=== PATIENT | male | born 1935 | race Caucasian/White ===

== ENCOUNTER 2018-11-02 12:34 | Inpatient (IN) ==
[2018-11-02 14:20] LABS: Basophils # 0.1 10*3/uL (0.0-0.2); Basophils % 0.2 % (0.0-0.8); Eosinophils # 0.1 10*3/uL (0.0-0.87); Eosinophils % 0.5 % (0.00-10.9); Hematocrit 42.2 VOL% (42.0-52.0); Hemoglobin 13.9 GM/DL (14.0-18.0); Immature Granulocytes % 3.3 %; Immature Granulocytes Absolute 0.75 #; Lymphocytes # 7.5 10*3/uL (1.4-4.0); Mean Corpuscular HGB Conc 32.9 GM/DL (32-36); Mean Corpuscular Hemoglobin 30 PG (27-34); Mean Corpuscular Volume 91.7 FL (87-102); Mean Platelet Volume 9.4 FL (9.6-12.0); Monocytes % 4.6 % (1.7-12.7); Neutrophils # 13.3 10*3/uL (1.4-7.4); Neutrophils % 58.4 % (38.7-73.9); Platelet Count 297 T/CUMM (130-400); Red Cell Distribution Width 13.7 % (9.3-17.3); White Blood Count 22.7 T/CUMM (4-12)
[2018-11-02 14:32] LABS: Albumin 3.2 G/DL (3.4-5.0); Bilirubin,Total 0.9 MG/DL (0.2-1.0); Calcium 7.6 MG/DL (8.5-10.1); Osmolality,Calculated 280.5 MOS/KG (273-304); Potassium 4.4 MMOL/L (3.5-5.1); Total Protein 6.2 G/DL (6.4-8.3)
[2018-11-02 14:41] LABS: Lymphocytes 20 % (20-55); Platelet Estimate Normal; Segmented Neutrophils 76 % (50-85); Total Cells Counted 100
[2018-11-02 14:56] LABS: Apearance,Urine CLEAR (Clear); Bilirubin,Urine Negative (Negative); Blood, Urine Negative (Negative); Glucose,Urine (UA) Negative (Negative); Hyaline Casts,Urine 4 /LPF (0-3); Ketones,Urine Negative (Negative); Mucus,Urine Occasional /LPF (Occasional); Nitrite,Urine Negative (Negative); Protein,Urine Negative; RBC,Urine <1 /HPF (0-4); Squamous Epithelial Cell,Urine Occasional /HPF (0-10); Urine Color Yellow (Yellow); Urine Specific Gravity 1.011 (1.001-1.035); Urine Urobilinogen < 2.0 EU/DL (0.2-1.0); WBC,Urine <1 /HPF (0-6)
[2018-11-02] MEDS ORDERED: SODIUM CHLORIDE 0.9% 500 ML IV STA (15:50)
[2018-11-02] MEDS ORDERED: ONDANSETRON 4 MG/2 ML VIAL IV PRN (16:21)
[2018-11-02] MEDS ORDERED: ALBUTEROL 2.5 MG/3 ML NEB RESP TX PRN (19:00)
[2018-11-02] MEDS: SODIUM CHLORIDE 0.9% 1,000 ML IV SCH (19:28)
[2018-11-02] MEDS: ALBUTEROL/IPRATROPIUM 3 ML NEB RESP TX SCH (20:06)
[2018-11-02] MEDS: ACETAMINOPHEN 500 MG TABLET PO SCH (22:20)
[2018-11-02] MEDS: TAMSULOSIN 0.4 MG CAPSULE PO SCH (22:21)
[2018-11-02] MEDS: POTASSIUM CHLORIDE 20 MEQ TABLET PO SCH (22:21)
[2018-11-02] MEDS: RIVAROXABAN 20 MG TABLET PO SCH (22:21)
[2018-11-02] MEDS: FINASTERIDE 5 MG TABLET PO SCH (22:21)
[2018-11-03] MEDS: LEVOTHYROXINE 75 MCG TABLET PO SCH (06:40)
[2018-11-03 06:52] LABS: Basophils % 0.2 % (0.0-0.8); Eosinophils # 0.2 10*3/uL (0.0-0.87); Eosinophils % 1.2 % (0.00-10.9); Hematocrit 38.2 VOL% (42.0-52.0); Hemoglobin 12.6 GM/DL (14.0-18.0); Immature Granulocytes % 2.9 %; Immature Granulocytes Absolute 0.54 #; Lymphocytes # 7.4 10*3/uL (1.4-4.0); Lymphocytes % 39.9 % (21.2-54.2); Mean Corpuscular Hemoglobin 30 PG (27-34); Mean Corpuscular Volume 91.6 FL (87-102); Mean Platelet Volume 9.4 FL (9.6-12.0); Monocytes # 0.8 10*3/uL (0.11-0.8); Monocytes % 4.2 % (1.7-12.7); Neutrophils # 9.7 10*3/uL (1.4-7.4); Neutrophils % 51.6 % (38.7-73.9); Platelet Count 206 T/CUMM (130-400); Red Blood Count 4.17 MC/CUMM (3.8-5.5); Red Cell Distribution Width 13.7 % (9.3-17.3); White Blood Count 18.7 T/CUMM (4-12)
[2018-11-03] MEDS: ALBUTEROL/IPRATROPIUM 3 ML NEB RESP TX SCH ×4 (07:09→19:29)
[2018-11-03 07:18] LABS: Atypical Lymphocytes Few; Lymphocytes 30 % (20-55); Segmented Neutrophils 64 % (50-85); Smudge Cells Few; Total Cells Counted 100
[2018-11-03 07:19] LABS: Hypochromasia 1+; Microcytosis Slight; Platelet Estimate Normal
[2018-11-03 07:29] LABS: Albumin 2.9 G/DL (3.4-5.0); Bilirubin,Total 0.4 MG/DL (0.2-1.0); Calcium 7.7 MG/DL (8.5-10.1); Potassium 4.2 MMOL/L (3.5-5.1); Total Protein 5.7 G/DL (6.4-8.3)
[2018-11-03] MEDS ORDERED: Tadalafil [Cialis] 20 MG PO SCH (09:00)
[2018-11-03] MEDS ORDERED: VITAMIN E 100 UNIT PO SCH (09:00)
[2018-11-03] MEDS ORDERED: DILTIAZEM CD 120 MG CAPSULE PO SCH (09:00)
[2018-11-03] MEDS: PANTOPRAZOLE 40 MG TABLET PO SCH (09:27)
[2018-11-03] MEDS: POTASSIUM CHLORIDE 20 MEQ TABLET PO SCH ×2 (09:27→21:21)
[2018-11-03] MEDS: MONTELUKAST 10 MG TABLET PO SCH (09:28)
[2018-11-03] MEDS: ACETAMINOPHEN 500 MG TABLET PO SCH ×2 (09:28→21:21)
[2018-11-03] MEDS: FUROSEMIDE 40 MG TABLET PO SCH ×2 (09:29→21:22)
[2018-11-03] MEDS: MULTIVITAMIN (CENTRUM) TABLET PO SCH (09:29)
[2018-11-03] MEDS: CARVEDILOL 6.25 MG TABLET PO SCH (16:34)
[2018-11-03] MEDS: SODIUM CHLORIDE 0.9% 1,000 ML IV SCH (16:40)
[2018-11-03] MEDS ORDERED: METOPROLOL TARTRATE 50 MG TABLET PO SCH (21:00)
[2018-11-03] MEDS: RIVAROXABAN 20 MG TABLET PO SCH (21:21)
[2018-11-03] MEDS: FINASTERIDE 5 MG TABLET PO SCH (21:22)
[2018-11-03] MEDS: TAMSULOSIN 0.4 MG CAPSULE PO SCH (21:22)
[2018-11-04] MEDS: LEVOTHYROXINE 75 MCG TABLET PO SCH (06:57)
[2018-11-04] MEDS: ALBUTEROL/IPRATROPIUM 3 ML NEB RESP TX SCH ×2 (07:21→10:45)
[2018-11-04] MEDS: ACETAMINOPHEN 500 MG TABLET PO SCH (08:52)
[2018-11-04] MEDS: CARVEDILOL 6.25 MG TABLET PO SCH (08:53)
[2018-11-04] MEDS: MONTELUKAST 10 MG TABLET PO SCH (08:53)
[2018-11-04] MEDS: MULTIVITAMIN (CENTRUM) TABLET PO SCH (08:53)
[2018-11-04] MEDS: PANTOPRAZOLE 40 MG TABLET PO SCH (08:53)
[2018-11-04] MEDS: FUROSEMIDE 40 MG TABLET PO SCH (08:53)
[2018-11-04] MEDS: POTASSIUM CHLORIDE 20 MEQ TABLET PO SCH (08:53)
[2018-11-04 11:34] VITALS: BP 101/67
== END 2018-11-04 13:00 | disposition home health service (06) | DRG 308 ==
LOC: N.ED 12:34 → N.EDINP 16:21 → N.TELES 16:51
PROVIDERS: ADMIT Emergency Medicine; ATTEND Emergency Medicine

== ENCOUNTER 2019-01-07 09:26 | Inpatient (IN) ==
[2019-01-07] MEDS ORDERED: methylPREDNISolone SOD SUC 40 MG/1 ML VIAL IV STA (09:49)
[2019-01-07] MEDS ORDERED: ALBUTEROL 2.5 MG/3 ML NEB RESP TX STA (09:49)
[2019-01-07] MEDS ORDERED: cefTRIAXone 1,000 MG in SODIUM CHLORIDE 0.9% 100 ML IV STA (09:50)
[2019-01-07 10:10] LABS: Basophils % 0.2 % (0.0-0.8); Eosinophils % 0.2 % (0.00-10.9); Hematocrit 32.4 VOL% (42.0-52.0); Hemoglobin 10.1 GM/DL (14.0-18.0); Immature Granulocytes % 0.8 %; Immature Granulocytes Absolute 0.11 #; Lymphocytes # 1.6 10*3/uL (1.4-4.0); Lymphocytes % 12.2 % (21.2-54.2); Mean Corpuscular HGB Conc 31.2 GM/DL (32-36); Mean Corpuscular Hemoglobin 29 PG (27-34); Mean Corpuscular Volume 94.2 FL (87-102); Mean Platelet Volume 10.2 FL (9.6-12.0); Monocytes # 1.3 10*3/uL (0.11-0.8); Neutrophils # 10.1 10*3/uL (1.4-7.4); Neutrophils % 76.6 % (38.7-73.9); Platelet Count 214 T/CUMM (130-400); Red Blood Count 3.44 MC/CUMM (3.8-5.5); Red Cell Distribution Width 14.4 % (9.3-17.3); White Blood Count 13.2 T/CUMM (4-12)
[2019-01-07 10:27] LABS: Calcium 8.6 MG/DL (8.5-10.1); Osmolality,Calculated 272.2 MOS/KG (273-304); Potassium 4.3 MMOL/L (3.5-5.1)
[2019-01-07] MEDS ORDERED: ACETAMINOPHEN 325 MG TABLET PO PRN (13:12)
[2019-01-07] MEDS ORDERED: ONDANSETRON 4 MG/2 ML VIAL IV PRN (13:12)
[2019-01-07] MEDS ORDERED: DOCUSATE SODIUM 100 MG CAPSULE PO PRN (13:12)
[2019-01-07] MEDS ORDERED: ALBUTEROL/IPRATROPIUM 3 ML NEB RESP TX PRN (13:18)
[2019-01-07] MEDS ORDERED: AZITHROMYCIN INJ 500 MG in SODIUM CHLORIDE 0.9% 250 ML IV STA (13:26)
[2019-01-07] MEDS ORDERED: ALBUTEROL 2.5 MG/3 ML NEB RESP TX PRN (13:33)
[2019-01-07] MEDS ORDERED: SODIUM CHLORIDE 0.9% 1,000 ML IV SCH (14:00)
[2019-01-07 14:29] LABS: Thyroid Stimulating Hormone 1.49 uIU/ml (0.358-3.74)
[2019-01-07 16:53] LABS: Apearance,Urine CLEAR (Clear); Bilirubin,Urine Negative (Negative); Blood, Urine Negative (Negative); Glucose,Urine (UA) Negative (Negative); Hyaline Casts,Urine 1 /LPF (0-3); Ketones,Urine Negative (Negative); Mucus,Urine Occasional /LPF (Occasional); Nitrite,Urine Negative (Negative); Protein,Urine Negative; RBC,Urine 1 /HPF (0-4); Urine Color Yellow (Yellow); Urine Specific Gravity 1.008 (1.001-1.035); Urine Urobilinogen < 2.0 EU/DL (0.2-1.0); WBC,Urine <1 /HPF (0-6)
[2019-01-07] MEDS ORDERED: CARVEDILOL 6.25 MG TABLET PO SCH (17:00)
[2019-01-07] MEDS: RIVAROXABAN 15 MG TABLET PO SCH (17:39)
[2019-01-07] MEDS: METOPROLOL SUCCINATE XL 50 MG TABLET PO SCH (20:48)
[2019-01-07] MEDS: POTASSIUM CHLORIDE 20 MEQ TABLET PO SCH (20:49)
[2019-01-07] MEDS: FINASTERIDE 5 MG TABLET PO SCH (20:50)
[2019-01-07] MEDS ORDERED: TAMSULOSIN 0.4 MG CAPSULE PO SCH (21:00)
[2019-01-08 03:40] LABS: Basophils % 0.1 % (0.0-0.8); Hematocrit 30.9 VOL% (42.0-52.0); Hemoglobin 9.7 GM/DL (14.0-18.0); Immature Granulocytes % 0.9 %; Immature Granulocytes Absolute 0.11 #; Lymphocytes # 2.7 10*3/uL (1.4-4.0); Lymphocytes % 21.3 % (21.2-54.2); Mean Corpuscular HGB Conc 31.4 GM/DL (32-36); Mean Corpuscular Hemoglobin 30 PG (27-34); Mean Corpuscular Volume 93.9 FL (87-102); Mean Platelet Volume 10.4 FL (9.6-12.0); Monocytes # 0.9 10*3/uL (0.11-0.8); Monocytes % 6.9 % (1.7-12.7); Neutrophils % 70.8 % (38.7-73.9); Platelet Count 214 T/CUMM (130-400); Red Blood Count 3.29 MC/CUMM (3.8-5.5); Red Cell Distribution Width 14.2 % (9.3-17.3); White Blood Count 12.7 T/CUMM (4-12)
[2019-01-08 03:59] LABS: Bilirubin,Total 0.6 MG/DL (0.2-1.0); Calcium 8.4 MG/DL (8.5-10.1); Osmolality,Calculated 277.1 MOS/KG (273-304)
[2019-01-08] MEDS: LEVOTHYROXINE 75 MCG TABLET PO SCH (06:46)
[2019-01-08] MEDS: VITAMIN E 200 UNIT CAPSULE PO SCH (08:44)
[2019-01-08] MEDS: MONTELUKAST 10 MG TABLET PO SCH (08:44)
[2019-01-08] MEDS: PANTOPRAZOLE 40 MG TABLET PO SCH (08:44)
[2019-01-08] MEDS: CHOLECALCIFEROL 5,000 UNIT TABLET PO SCH (08:44)
[2019-01-08] MEDS: MULTIVITAMIN (CENTRUM) TABLET PO SCH (08:45)
[2019-01-08] MEDS: ZINC GLUCONATE 50 MG TABLET PO SCH (08:45)
[2019-01-08] MEDS: cefTRIAXone 1,000 MG in SYRINGE 1 EACH IV SCH (08:45)
[2019-01-08] MEDS: METOPROLOL SUCCINATE XL 50 MG TABLET PO SCH ×2 (08:45→20:38)
[2019-01-08] MEDS: FUROSEMIDE 20 MG TABLET PO SCH (08:45)
[2019-01-08] MEDS ORDERED: FUROSEMIDE 20 MG TABLET PO SCH (09:00)
[2019-01-08] MEDS ORDERED: AZITHROMYCIN INJ 500 MG in SODIUM CHLORIDE 0.9% 250 ML IV SCH (09:00)
[2019-01-08] MEDS: ALBUTEROL/IPRATROPIUM 3 ML NEB RESP TX SCH ×4 (11:15→23:25)
[2019-01-08] MEDS ORDERED: AZITHROMYCIN INJ 500 MG in SODIUM CHLORIDE 0.9% 250 ML IV ONE (13:00)
[2019-01-08] MEDS: RIVAROXABAN 15 MG TABLET PO SCH (17:04)
[2019-01-08] MEDS: POTASSIUM CHLORIDE 20 MEQ TABLET PO SCH (20:38)
[2019-01-08] MEDS: FINASTERIDE 5 MG TABLET PO SCH (20:38)
[2019-01-09] MEDS: ALBUTEROL/IPRATROPIUM 3 ML NEB RESP TX SCH ×6 (03:14→23:06)
[2019-01-09 05:27] LABS: Basophils # 0.1 10*3/uL (0.0-0.2); Basophils % 0.3 % (0.0-0.8); Eosinophils # 0.1 10*3/uL (0.0-0.87); Eosinophils % 0.7 % (0.00-10.9); Hematocrit 34.9 VOL% (42.0-52.0); Hemoglobin 10.8 GM/DL (14.0-18.0); Immature Granulocytes % 1.1 %; Immature Granulocytes Absolute 0.18 #; Lymphocytes # 3.6 10*3/uL (1.4-4.0); Lymphocytes % 22.6 % (21.2-54.2); Mean Corpuscular HGB Conc 30.9 GM/DL (32-36); Mean Corpuscular Hemoglobin 29 PG (27-34); Mean Corpuscular Volume 94.6 FL (87-102); Mean Platelet Volume 9.9 FL (9.6-12.0); Monocytes # 1.1 10*3/uL (0.11-0.8); Neutrophils # 10.8 10*3/uL (1.4-7.4); Neutrophils % 68.3 % (38.7-73.9); Platelet Count 258 T/CUMM (130-400); Red Blood Count 3.69 MC/CUMM (3.8-5.5); Red Cell Distribution Width 14.4 % (9.3-17.3); White Blood Count 15.9 T/CUMM (4-12)
[2019-01-09 05:57] LABS: Albumin 3.3 G/DL (3.4-5.0); Bilirubin,Total 0.7 MG/DL (0.2-1.0); Calcium 8.9 MG/DL (8.5-10.1); Osmolality,Calculated 280.5 MOS/KG (273-304); Potassium 4.4 MMOL/L (3.5-5.1); Total Protein 7.2 G/DL (6.4-8.3)
[2019-01-09] MEDS: LEVOTHYROXINE 75 MCG TABLET PO SCH (06:19)
[2019-01-09] MEDS ORDERED: BENZONATATE 100 MG CAPSULE PO PRN (08:54)
[2019-01-09] MEDS ORDERED: guaiFENesin 200 MG/10 ML UDCUP PO PRN (08:55)
[2019-01-09] MEDS ORDERED: FUROSEMIDE 20 MG TABLET PO SCH (09:00)
[2019-01-09] MEDS: CHOLECALCIFEROL 5,000 UNIT TABLET PO SCH (10:42)
[2019-01-09] MEDS: FUROSEMIDE 20 MG TABLET PO SCH (10:42)
[2019-01-09] MEDS: MONTELUKAST 10 MG TABLET PO SCH (10:42)
[2019-01-09] MEDS: METOPROLOL SUCCINATE XL 25 MG TABLET PO SCH ×2 (10:42→20:16)
[2019-01-09] MEDS: MULTIVITAMIN (CENTRUM) TABLET PO SCH (10:42)
[2019-01-09] MEDS: AZITHROMYCIN 250 MG TABLET PO SCH (10:42)
[2019-01-09] MEDS: DILTIAZEM CD 120 MG CAPSULE PO SCH (10:43)
[2019-01-09] MEDS: ZINC GLUCONATE 50 MG TABLET PO SCH (10:43)
[2019-01-09] MEDS: PANTOPRAZOLE 40 MG TABLET PO SCH (10:43)
[2019-01-09] MEDS: VITAMIN E 200 UNIT CAPSULE PO SCH (10:43)
[2019-01-09] MEDS: cefTRIAXone 1,000 MG in SYRINGE 1 EACH IV SCH (10:47)
[2019-01-09] MEDS: METOPROLOL SUCCINATE XL 50 MG TABLET PO SCH (10:48)
[2019-01-09] MEDS: RIVAROXABAN 15 MG TABLET PO SCH (16:20)
[2019-01-09] MEDS: FINASTERIDE 5 MG TABLET PO SCH (20:16)
[2019-01-09] MEDS: POTASSIUM CHLORIDE 20 MEQ TABLET PO SCH (20:16)
[2019-01-10] MEDS: ALBUTEROL/IPRATROPIUM 3 ML NEB RESP TX SCH ×6 (03:22→23:15)
[2019-01-10 05:26] LABS: Basophils % 0.3 % (0.0-0.8); Eosinophils # 0.2 10*3/uL (0.0-0.87); Eosinophils % 1.8 % (0.00-10.9); Hematocrit 32.2 VOL% (42.0-52.0); Hemoglobin 10.2 GM/DL (14.0-18.0); Immature Granulocytes % 1.9 %; Lymphocytes # 3.6 10*3/uL (1.4-4.0); Lymphocytes % 34.3 % (21.2-54.2); Mean Corpuscular HGB Conc 31.7 GM/DL (32-36); Mean Corpuscular Hemoglobin 29 PG (27-34); Mean Corpuscular Volume 92.5 FL (87-102); Mean Platelet Volume 9.9 FL (9.6-12.0); Monocytes % 9.2 % (1.7-12.7); Neutrophils # 5.4 10*3/uL (1.4-7.4); Neutrophils % 52.5 % (38.7-73.9); Platelet Count 238 T/CUMM (130-400); Red Blood Count 3.48 MC/CUMM (3.8-5.5); Red Cell Distribution Width 14.4 % (9.3-17.3); White Blood Count 10.4 T/CUMM (4-12)
[2019-01-10 05:29] LABS: Albumin 2.8 G/DL (3.4-5.0); Bilirubin,Total 0.4 MG/DL (0.2-1.0); Calcium 8.6 MG/DL (8.5-10.1); Osmolality,Calculated 281.3 MOS/KG (273-304); Total Protein 6.4 G/DL (6.4-8.3)
[2019-01-10 05:49] LABS: Eosinophils 1 % (0-10); Hypochromasia 1+; Lymphocytes 29 % (20-55); Myelocytes 1 %; Platelet Estimate Adequate; Segmented Neutrophils 59 % (50-85); Total Cells Counted 100
[2019-01-10] MEDS: LEVOTHYROXINE 75 MCG TABLET PO SCH (06:14)
[2019-01-10] MEDS: FUROSEMIDE 20 MG TABLET PO SCH (09:01)
[2019-01-10] MEDS: MULTIVITAMIN (CENTRUM) TABLET PO SCH (09:02)
[2019-01-10] MEDS: AZITHROMYCIN 250 MG TABLET PO SCH (09:02)
[2019-01-10] MEDS: MONTELUKAST 10 MG TABLET PO SCH (09:03)
[2019-01-10] MEDS: CHOLECALCIFEROL 5,000 UNIT TABLET PO SCH (09:04)
[2019-01-10] MEDS: PANTOPRAZOLE 40 MG TABLET PO SCH (09:04)
[2019-01-10] MEDS: METOPROLOL SUCCINATE XL 25 MG TABLET PO SCH ×2 (09:04→20:42)
[2019-01-10] MEDS: VITAMIN E 200 UNIT CAPSULE PO SCH (09:04)
[2019-01-10] MEDS: DILTIAZEM CD 120 MG CAPSULE PO SCH (09:04)
[2019-01-10] MEDS: cefTRIAXone 1,000 MG in SYRINGE 1 EACH IV SCH (09:05)
[2019-01-10] MEDS: ZINC GLUCONATE 50 MG TABLET PO SCH (09:05)
[2019-01-10 13:06] LABS: Mycoplasma pneumoniae Ab, IgG Positive (Negative); Mycoplasma pneumoniae Ab, IgM Equivocal (Negative)
[2019-01-10] MEDS: methylPREDNISolone SOD SUC 40 MG/1 ML VIAL IV SCH ×2 (14:27→23:18)
[2019-01-10] MEDS: RIVAROXABAN 15 MG TABLET PO SCH (16:43)
[2019-01-10] MEDS: FINASTERIDE 5 MG TABLET PO SCH (20:42)
[2019-01-10] MEDS: POTASSIUM CHLORIDE 20 MEQ TABLET PO SCH (20:42)
[2019-01-11] MEDS: ALBUTEROL/IPRATROPIUM 3 ML NEB RESP TX SCH ×3 (03:00→10:58)
[2019-01-11] MEDS: methylPREDNISolone SOD SUC 40 MG/1 ML VIAL IV SCH (06:12)
[2019-01-11] MEDS: LEVOTHYROXINE 75 MCG TABLET PO SCH (06:12)
[2019-01-11] MEDS: AZITHROMYCIN 250 MG TABLET PO SCH ×2 (07:47→08:05)
[2019-01-11] MEDS: CHOLECALCIFEROL 5,000 UNIT TABLET PO SCH ×2 (07:47→08:04)
[2019-01-11] MEDS: ZINC GLUCONATE 50 MG TABLET PO SCH ×2 (07:48→08:04)
[2019-01-11] MEDS: FUROSEMIDE 20 MG TABLET PO SCH ×2 (07:48→08:03)
[2019-01-11] MEDS: DILTIAZEM CD 120 MG CAPSULE PO SCH ×2 (07:48→08:03)
[2019-01-11] MEDS: PANTOPRAZOLE 40 MG TABLET PO SCH ×2 (07:48→08:03)
[2019-01-11] MEDS: MONTELUKAST 10 MG TABLET PO SCH ×2 (07:48→08:04)
[2019-01-11] MEDS: cefTRIAXone 1,000 MG in SYRINGE 1 EACH IV SCH ×2 (07:49→08:03)
[2019-01-11] MEDS: METOPROLOL SUCCINATE XL 25 MG TABLET PO SCH ×2 (07:49→08:04)
[2019-01-11] MEDS: VITAMIN E 200 UNIT CAPSULE PO SCH ×2 (07:49→08:04)
[2019-01-11] MEDS: MULTIVITAMIN (CENTRUM) TABLET PO SCH ×2 (07:49→08:03)
[2019-01-11 13:00] VITALS: BP 157/75
== END 2019-01-11 12:55 | disposition home or self-care (01) | DRG 194 ==
LOC: N.ED 09:26 → SUATTDRO 13:16 → N.EDINP 13:16 → N.2E 14:34
PROVIDERS: ADMIT Internal Medicine Cardiovascular Disease; ATTEND Internal Medicine

== ENCOUNTER 2019-04-18 18:30 | Inpatient (IN) ==
[2019-04-18 19:30] LABS: Basophils % 0.1 % (0.0-0.8); Eosinophils % 0.1 % (0.00-10.9); Hematocrit 22.2 VOL% (42.0-52.0); Hemoglobin 6.9 GM/DL (14.0-18.0); Immature Granulocytes % 1.6 %; Immature Granulocytes Absolute 0.34 #; Lymphocytes # 5.2 10*3/uL (1.4-4.0); Lymphocytes % 23.8 % (21.2-54.2); Mean Corpuscular HGB Conc 31.1 GM/DL (32-36); Mean Corpuscular Volume 83.1 FL (87-102); Mean Platelet Volume 9.6 FL (9.6-12.0); Monocytes % 5.8 % (1.7-12.7); NRBC # 0.06 10*3/uL; Neutrophils % 68.6 % (38.7-73.9); Platelet Count 435 T/CUMM (130-400); Red Blood Count 2.67 MC/CUMM (3.8-5.5); Red Cell Distribution Width 14.6 % (9.3-17.3); White Blood Count 21.9 T/CUMM (4-12)
[2019-04-18 19:41] LABS: INR 1.3; PT Patient Result 13.6 SECS
[2019-04-18] MEDS ORDERED: FUROSEMIDE 40 MG/4 ML VIAL IV STA (19:59)
[2019-04-18 20:08] LABS: Lymphocytes 24 % (20-55); Nucleated Red Blood Cells 1 (0-5); Segmented Neutrophils 73 % (50-85); Total Cells Counted 100
[2019-04-18 20:09] LABS: Anisocytosis 1+; Macrocytosis Slight; Microcytosis 1+; Platelet Estimate Increased; Polychromasia 1+
[2019-04-18 20:15] LABS: Albumin 3.3 G/DL (3.4-5.0); Bilirubin,Total 0.9 MG/DL (0.2-1.0); Calcium 8.8 MG/DL (8.5-10.1); Osmolality,Calculated 275.2 MOS/KG (273-304); Total Protein 6.9 G/DL (6.4-8.3)
[2019-04-18] MEDS ORDERED: SODIUM CHLORIDE 0.9% 1,000 ML IV PRN (23:31)
[2019-04-18] MEDS ORDERED: ONDANSETRON 4 MG/2 ML VIAL IV PRN (23:31)
[2019-04-18] MEDS ORDERED: ACETAMINOPHEN 325 MG TABLET PO PRN (23:31)
[2019-04-18] MEDS ORDERED: DOCUSATE SODIUM 100 MG CAPSULE PO PRN (23:31)
[2019-04-19 04:59] LABS: Calcium 8.7 MG/DL (8.5-10.1); Osmolality,Calculated 277.8 MOS/KG (273-304)
[2019-04-19 06:11] LABS: Basophils # 0.1 10*3/uL (0.0-0.2); Basophils % 0.3 % (0.0-0.8); Eosinophils # 0.1 10*3/uL (0.0-0.87); Eosinophils % 0.4 % (0.00-10.9); Hematocrit 25.7 VOL% (42.0-52.0); Hemoglobin 7.6 GM/DL (14.0-18.0); Immature Granulocytes % 1.7 %; Immature Granulocytes Absolute 0.29 #; Lymphocytes # 5.6 10*3/uL (1.4-4.0); Lymphocytes % 31.9 % (21.2-54.2); Mean Corpuscular HGB Conc 29.6 GM/DL (32-36); Mean Corpuscular Volume 87.7 FL (87-102); Mean Platelet Volume 9.8 FL (9.6-12.0); Monocytes % 7.5 % (1.7-12.7); NRBC # 0.04 10*3/uL; Neutrophils % 58.2 % (38.7-73.9); Platelet Count 376 T/CUMM (130-400); Red Blood Count 2.93 MC/CUMM (3.8-5.5); Red Cell Distribution Width 14.9 % (9.3-17.3); White Blood Count 17.4 T/CUMM (4-12)
[2019-04-19 08:44] LABS: Hematocrit 27.2 VOL% (42.0-52.0); Hemoglobin 8.7 GM/DL (14.0-18.0)
[2019-04-19] MEDS: DILTIAZEM CD 120 MG CAPSULE PO SCH ×2 (10:04→20:10)
[2019-04-19] MEDS: METOPROLOL SUCCINATE XL 25 MG TABLET PO SCH ×2 (10:04→20:09)
[2019-04-19] MEDS: FUROSEMIDE 80 MG TABLET PO SCH (10:04)
[2019-04-19] MEDS ORDERED: MORPHINE 4 MG/1 ML VIAL IV PRN (12:57)
[2019-04-19] MEDS ORDERED: CHOLECALCIFEROL 5,000 UNIT TABLET PO PRN (14:08)
[2019-04-19] MEDS: BUDESONIDE/FORMOTEROL 160-4.5 INHALER 6 GM INH SCH (20:08)
[2019-04-19] MEDS: ACETAMINOPHEN 500 MG TABLET PO SCH (20:09)
[2019-04-19] MEDS ORDERED: TAMSULOSIN 0.4 MG CAPSULE PO SCH (21:00)
[2019-04-19] MEDS ORDERED: POTASSIUM CHLORIDE 20 MEQ TABLET PO SCH (21:00)
[2019-04-19] MEDS ORDERED: FINASTERIDE 5 MG TABLET PO SCH (21:00)
[2019-04-20 04:22] LABS: Basophils % 0.2 % (0.0-0.8); Eosinophils # 0.2 10*3/uL (0.0-0.87); Eosinophils % 1.2 % (0.00-10.9); Hematocrit 25.6 VOL% (42.0-52.0); Hemoglobin 8.1 GM/DL (14.0-18.0); Immature Granulocytes % 2.1 %; Immature Granulocytes Absolute 0.41 #; Lymphocytes # 5.8 10*3/uL (1.4-4.0); Lymphocytes % 30.3 % (21.2-54.2); Mean Corpuscular HGB Conc 31.6 GM/DL (32-36); Mean Corpuscular Volume 84.2 FL (87-102); Mean Platelet Volume 9.5 FL (9.6-12.0); NRBC # 0.02 10*3/uL; Neutrophils % 59.2 % (38.7-73.9); Platelet Count 363 T/CUMM (130-400); Red Blood Count 3.04 MC/CUMM (3.8-5.5); White Blood Count 19.2 T/CUMM (4-12)
[2019-04-20 04:43] LABS: Calcium 8.4 MG/DL (8.5-10.1); Osmolality,Calculated 275.1 MOS/KG (273-304)
[2019-04-20] MEDS ORDERED: LEVOTHYROXINE 75 MCG TABLET PO SCH (07:00)
[2019-04-20] MEDS: IPRATROPIUM 500 MCG/2.5 ML NEB RESP TX SCH ×2 (07:17→13:23)
[2019-04-20] MEDS: DILTIAZEM CD 120 MG CAPSULE PO SCH (08:48)
[2019-04-20] MEDS: FUROSEMIDE 80 MG TABLET PO SCH (08:48)
[2019-04-20] MEDS: ACETAMINOPHEN 500 MG TABLET PO SCH (08:49)
[2019-04-20] MEDS: METOPROLOL SUCCINATE XL 25 MG TABLET PO SCH (08:49)
[2019-04-20] MEDS: BUDESONIDE/FORMOTEROL 160-4.5 INHALER 6 GM INH SCH (08:50)
[2019-04-20] MEDS ORDERED: VITAMIN E 100 UNIT PO SCH (09:00)
[2019-04-20] MEDS ORDERED: MONTELUKAST 10 MG TABLET PO SCH (09:00)
[2019-04-20 11:55] VITALS: BP 118/63
== END 2019-04-20 13:32 | disposition home or self-care (01) | DRG 605 ==
LOC: N.ED 18:30 → INTOOBSV 22:18 → N.EDINP 22:18 → N.TELEN 23:14
PROVIDERS: ADMIT Internal Medicine; ATTEND Internal Medicine

== ENCOUNTER 2020-11-10 14:05 | Observation (INO) ==
[2020-11-10 15:56] LABS: Basophils % 0.1 % (0.0-0.8); Hematocrit 36.4 VOL% (42.0-52.0); Hemoglobin 10.8 GM/DL (14.0-18.0); Immature Granulocytes % 1.9 %; Lymphocytes # 7.7 10*3/uL (1.4-4.0); Lymphocytes % 24.9 % (21.2-54.2); Mean Corpuscular HGB Conc 29.7 GM/DL (32-36); Mean Platelet Volume 9.2 FL (9.6-12.0); Monocytes % 1.8 % (1.7-12.7); Neutrophils % 71.3 % (38.7-73.9); Platelet Count 339 T/CUMM (130-400); Red Blood Count 4.09 MC/CUMM (3.8-5.5); Red Cell Distribution Width 15.5 % (9.3-17.3); White Blood Count 30.9 T/CUMM (4-12)
[2020-11-10 16:04] LABS: INR 1.2; PT Patient Result 12.7 SECS (9.8-11.9)
[2020-11-10 16:08] LABS: Albumin 3.5 G/DL (3.4-5.0); Bilirubin,Total 0.5 MG/DL (0.2-1.0); Calcium 8.7 MG/DL (8.5-10.1); Potassium 4.5 MMOL/L (3.5-5.1); Total Protein 7.5 G/DL (6.4-8.3)
[2020-11-10] MEDS ORDERED: SODIUM CHLORIDE 0.9% 1,000 ML IV STA (16:10)
[2020-11-10 16:18] LABS: Lymphocytes 19 % (20-55); Segmented Neutrophils 80 % (50-85); Total Cells Counted 100
[2020-11-10 16:19] LABS: Anisocytosis Slight; Elliptocytes Few; Platelet Estimate Adequate; Polychromasia Slight
[2020-11-10] MEDS ORDERED: ONDANSETRON 4 MG/2 ML VIAL IV PRN (17:44)
[2020-11-10] MEDS ORDERED: DEXTROSE 50% 25 GM/50 ML VIAL IV PRN (17:44)
[2020-11-10] MEDS ORDERED: ACETAMINOPHEN 325 MG TABLET PO PRN (17:44)
[2020-11-10] MEDS ORDERED: GLUCAGON 1 MG VIAL IM PRN (17:44)
[2020-11-10 18:17] LABS: Bilirubin,Urine Negative (Negative); Blood, Urine Negative (Negative); Glucose,Urine (UA) Negative (Negative); Ketones,Urine Negative (Negative); Nitrite,Urine Negative (Negative); Protein,Urine Negative; Urine Appearance CLEAR (Clear); Urine Color Yellow (Yellow); Urine Urobilinogen < 2.0 EU/DL (0.2-1.0)
[2020-11-10] MEDS: ALBUTEROL/IPRATROPIUM 3 ML NEB RESP TX SCH (19:23)
[2020-11-10] MEDS ORDERED: POTASSIUM CHLORIDE 20 MEQ TABLET PO SCH (21:00)
[2020-11-10] MEDS: TAMSULOSIN 0.4 MG CAPSULE PO SCH (21:14)
[2020-11-10] MEDS: methylPREDNISolone SOD SUC 40 MG/1 ML VIAL IV SCH (21:14)
[2020-11-11] MEDS: ALBUTEROL/IPRATROPIUM 3 ML NEB RESP TX SCH ×4 (02:07→19:10)
[2020-11-11] MEDS: methylPREDNISolone SOD SUC 40 MG/1 ML VIAL IV SCH ×3 (03:05→17:25)
[2020-11-11 05:55] LABS: Basophils % 0.2 % (0.0-0.8); Hematocrit 33.2 VOL% (42.0-52.0); Hemoglobin 10.3 GM/DL (14.0-18.0); Immature Granulocytes % 1.4 %; Immature Granulocytes Absolute 0.33 #; Lymphocytes # 8.5 10*3/uL (1.4-4.0); Lymphocytes % 35.1 % (21.2-54.2); Mean Corpuscular Volume 86.5 FL (87-102); Mean Platelet Volume 9.5 FL (9.6-12.0); Monocytes % 1.2 % (1.7-12.7); Neutrophils % 62.1 % (38.7-73.9); Platelet Count 299 T/CUMM (130-400); Red Blood Count 3.84 MC/CUMM (3.8-5.5); Red Cell Distribution Width 15.5 % (9.3-17.3); White Blood Count 24.3 T/CUMM (4-12)
[2020-11-11 06:17] LABS: Hypochromasia 1+; Microcytosis 1+; Platelet Estimate Adequate
[2020-11-11] MEDS: LEVOTHYROXINE 75 MCG TABLET PO SCH (06:25)
[2020-11-11 06:29] LABS: Calcium 8.9 MG/DL (8.5-10.1); Potassium 5.2 MMOL/L (3.5-5.1); Risk Ratio 2.61; Thyroid Stimulating Hormone 0.23 uIU/ml (0.358-3.74); VLDL CHOLESTEROL 21.8 MG/DL
[2020-11-11] MEDS: PANTOPRAZOLE 40 MG TABLET PO SCH (08:25)
[2020-11-11] MEDS: MONTELUKAST 10 MG TABLET PO SCH (08:25)
[2020-11-11] MEDS: FINASTERIDE 5 MG TABLET PO SCH (08:26)
[2020-11-11] MEDS ORDERED: RIVAROXABAN 10 MG TABLET PO SCH (09:00)
[2020-11-11] MEDS ORDERED: FUROSEMIDE 40 MG TABLET PO SCH (09:00)
[2020-11-11] MEDS: TAMSULOSIN 0.4 MG CAPSULE PO SCH (20:52)
[2020-11-12] MEDS: ALBUTEROL/IPRATROPIUM 3 ML NEB RESP TX SCH ×3 (00:42→13:36)
[2020-11-12] MEDS: methylPREDNISolone SOD SUC 40 MG/1 ML VIAL IV SCH ×2 (01:21→09:55)
[2020-11-12 05:23] LABS: Basophils # 0.1 10*3/uL (0.0-0.2); Basophils % 0.2 % (0.0-0.8); Hematocrit 32.6 VOL% (42.0-52.0); Hemoglobin 10.4 GM/DL (14.0-18.0); Immature Granulocytes % 1.6 %; Lymphocytes # 9.7 10*3/uL (1.4-4.0); Lymphocytes % 31.9 % (21.2-54.2); Mean Corpuscular HGB Conc 31.9 GM/DL (32-36); Mean Corpuscular Volume 85.1 FL (87-102); Mean Platelet Volume 9.3 FL (9.6-12.0); Monocytes % 1.7 % (1.7-12.7); Neutrophils % 64.6 % (38.7-73.9); Platelet Count 314 T/CUMM (130-400); Red Blood Count 3.83 MC/CUMM (3.8-5.5); Red Cell Distribution Width 15.6 % (9.3-17.3); White Blood Count 30.4 T/CUMM (4-12)
[2020-11-12 05:47] LABS: Lymphocytes 29 % (20-55); Platelet Estimate Normal; Segmented Neutrophils 70 % (50-85); Total Cells Counted 100
[2020-11-12] MEDS: LEVOTHYROXINE 75 MCG TABLET PO SCH (05:47)
[2020-11-12 05:48] LABS: Hypochromasia Slight
[2020-11-12] MEDS ORDERED: RIVAROXABAN 15 MG TABLET PO SCH (08:00)
[2020-11-12] MEDS: PANTOPRAZOLE 40 MG TABLET PO SCH (08:49)
[2020-11-12] MEDS: MONTELUKAST 10 MG TABLET PO SCH (08:49)
[2020-11-12] MEDS: FINASTERIDE 5 MG TABLET PO SCH (08:49)
[2020-11-12 11:29] VITALS: BP 145/70
[2020-11-12] MEDS ORDERED: methylPREDNISolone SOD SUC 40 MG/1 ML VIAL IV SCH (12:00)
== END 2020-11-12 16:00 | disposition home or self-care (01) ==
LOC: N.EDINP 14:05 → N.ED 14:05 → N.3E 18:22
PROVIDERS: ADMIT Internal Medicine; ATTEND Internal Medicine